=== PATIENT | male | born 1930 | race Caucasian/White ===

== ENCOUNTER → 2017-02-18 | Day surgery (SDC) | payer MEDICARE ==
[2017-02-18] VITALS (10 sets, daily range): BP systolic 117–135; BP diastolic 61–94; PULSE 70; RESP 14–24; O2SAT 94–98
[~2017-02-18] VITALS: Ht 175.3 cm; Wt 80.7 kg
[~2017-02-18] MED LIST: 0.9% Sodium Chloride 250 ML ONE; ALBU8.5H2 INHALATION; BUME1TAB4 PO; Bupivacaine-MPF 0.5% 30 mL Inj ONE; CLIN-78 PO; FINA5TAB9 PO; HYDROcodone-APAP 5-325 mg Tablet PO PRN; Heparin 10,000 Unit/1,000 mL NS Premix IV ONE; Ondansetron 2 mg/mL 2 mL Inj IVPUSH PRN; POTA20TA16 PO; Vancomycin 1,000 mg Inj ONE; Vancomycin Inj 1,000 MG in IV Premix 1 EACH IV ONE; WARF2.5T82 PO; fentaNYL-PF 50 mCg/mL 2 mL Inj ONE
[2017-02-18 09:41] LABS: Mean Corpuscular Volume 91.8 fL (81-100)
[2017-02-18 09:44] LABS: BASOPHILS % (AUTO) 1.1 % (0-3); EOSINOPHILS % (AUTO) 4.1 % (0-5); Mean Corpuscular Hemoglobin 30.5 pg (27.0-35.0); NEUTROPHILS % (AUTO) 58.2 % (40-74); Platelet Count 144 bil/L (150-400)
[2017-02-18 09:52] LABS: INR 2.22 ratio
--- NOTE | 2017-02-18 11:12 | NUR ---
Admitted for pacemaker generator upgrade - low battery life. Pt is here with and understands plan of care.
[2017-02-18] MEDS: 0.9% Sodium Chloride 1,000 ML IV SCH ×2 (11:31→15:09)
--- NOTE | 2017-02-18 12:10 | NUR ---
Returned from pacer generator upgrade. No complications - S/T regarding device recording at home reviewed with [facility] rep with patient and patient's .
--- NOTE | 2017-02-18 12:21 | OP ---
[address] [address] OPERATIVE REPORT PATIENT: DARREN HOWARD : 1930 MR#: [id number] ADMIT: 02/18/2017 JOB ID: [id number] DATE OF SURGERY: 02/18/2017 PREOPERATIVE DIAGNOSIS(ES): Pacemaker battery depletion. POSTOPERATIVE DIAGNOSIS(ES): Pacemaker battery depletion. PROCEDURES PERFORMED: 1. Single chamber pacemaker generator replacement. 2. Pocket revision. SURGEON: Frandy Michele MD, electrophysiology attending NEWS PRODUCTION ASSISTANT: Vida Morales. IMPLANTED DEVICE: 1. [employer] Accolade SR model L300, serial number [id number]. 2. Explanted device is a [employer] model S6038 serial number [id number]. CHRONIC DEVICES: 1. Right ventricular lead: [employer] Fine Line Sterox, 52 cm, model 4456 serial number [id number]. 2. Right atrial lead: [employer] Fine Line 4470, serial number [id number] (capped, usable). ANESTHESIA: Bolus dosing of Versed and fentanyl was utilized for an appropriate level of sedation. INDICATION: The patient is a pleasant 86-year-old man with now chronic atrial fibrillation whose pacemaker has reached GUILLERMO. After discussion of the risks and benefits of generator replacement, he opted to proceed. He does have a dual-chamber pacemaker but is now chronically in atrial fibrillation. The plan is to replace the generator with a single-chamber device and cap his chronic atrial lead. PROCEDURE DESCRIPTION: Following informed consent, the patient was taken to the EP lab in the fasting, nonsedated state where was prepped in the usual sterile fashion. The left infraclavicular surgical scar was infiltrated with 30 mL of a 50/50 mixture of bupivacaine and lidocaine. Once adequate anesthesia was achieved, a 3 cm transverse incision was performed overlying the previous surgical scar. Dissection was carried down to the capsule and the leads and generator were freed loose of adhesions. The medial and inferior aspect of the capsule were infiltrated with further anesthetic and the pocket was extended medially and inferiorly to accommodate the larger footprint of the new device. The chronic leads were disconnected from the generator and the pocket was copiously irrigated with antibiotic solution. The right atrial lead was capped and secured to the floor of the capsule. The right ventricular lead was connected to a new generator and tested, showing excellent sensing threshold and impedances. The entire system was then replaced into the capsule and the generator was secured to the floor of the capsule using 1-0 Ti-Cron suture. The incision was closed in running layers of absorbable suture. The wound was dressed with skin adhesive and a small dressing. At the end of procedure the needle, sponge, and instrument counts were all correct. COMPLICATIONS: None. ESTIMATED BLOOD LOSS: Negligible. DEVICE MEASURED DATA: 10.8 mV, 0.7 V at 0.4 msec, 391 ohms. FINAL PROGRAM PARAMETERS: VVIR 70-130 5 beats per minute. IMPRESSION: Successful single-chamber pacemaker generator replacement. PLAN: 1. Recovery and discharge from the AG. 2. Doxycycline 100 p.o. daily x7 days. 3. Wound check in one week. ATTENDING STATEMENT: Frandy Michele MD, electrophysiology attending, was present for and supervised/performed all aspects of this procedure.
--- NOTE | 2017-02-18 15:10 | NUR ---
D/C instructions reviewed with patient and patient's post recovery from generator change. Insertion site of generator change is dry and intact with no swelling - patient denies any pain.
== END | disposition home or self-care (01) ==
LOC: SOUO 00:03
PROVIDERS: ATTEND Internal Medicine Cardiovascular Disease
DX: Z45.010 Encounter for checking and testing of cardiac pacemaker pulse generator [battery] (principal); I48.2 Chronic atrial fibrillation; I49.5 Sick sinus syndrome; Z79.01 Long term (current) use of anticoagulants; Z95.3 Presence of xenogenic heart valve; Z87.891 Personal history of nicotine dependence
CPT/HCPCS: 33227; 36415; 80048; 85025; 85610; 93005; 99152; 99153; C1786; J1644; J2250; J3010; J3370; J7030; J7050